=== PATIENT | male | born 1935 | race Caucasian/White ===

== ENCOUNTER 2017-07-26 15:33 | Inpatient (IN) | payer OTHER ==
[~2017-07-26] VITALS: Ht 165.1 cm; Wt 61.7 kg
--- NOTE | 2017-07-26 15:37 | NUR ---
JOHN FROM [facility] FOR NEAR SYNCOPAL EPISODE. PATIENT IS AAOX3 WITH EPISODE OF CONFUSION. SKIN IS WARM TO TOUCH AND NON DIAPHORETIC.PATIENT IS AFEBRILE. VSS.
[2017-07-26 15:58] LABS: BASOPHILS # (AUTO) 0.2 /CMM (0.0-0.2); BASOPHILS % (AUTO) 1.4 % (0.0-2.0); EOSINOPHILS % (AUTO) 0.5 % (0.0-6.0); HEMATOCRIT 35 % (39-51); HEMOGLOBIN 12.2 g/dL (13.5-17.5); LYMPHOCYTES # (AUTO) 1.1 /CMM (0.8-4.8); LYMPHOCYTES % (AUTO) 9.4 % (20.0-44.0); MEAN CORPUSCULAR HGB CONC 35 g/dl (31.0-36.0); MEAN CORPUSCULAR VOLUME 89 fL (80-96); MONOCYTES # (AUTO) 1.2 /CMM (0.1-1.30); MONOCYTES % (AUTO) 10.3 % (2.0-12.0); NEUTROPHILS # (AUTO) 8.8 /CMM (1.8-8.9); NEUTROPHILS % (AUTO) 78.4 % (43.0-81.0); PLATELET COUNT (AUTO) 252 /CMM (150-450); RDW COEFFICIENT OF VARIATION 13.8 (11.5-15.0); WHITE BLOOD COUNT (AUTO) 11.4 K/uL (4.3-11.0)
[2017-07-26] MEDS ORDERED: NITROGLYCERIN PACKET 1 GM PACKET TD ONE (16:00)
[2017-07-26] MEDS ORDERED: ASPIRIN 325 MG TABLET PO ONE (16:00)
[2017-07-26 16:09] LABS: CALCIUM, SERUM 9.3 mg/dL (8.5-10.1); CARBON DIOXIDE 26 mmol/L (21-32); CHLORIDE 101 mmol/L (98-107); CREATININE 2.4 mg/dL (0.6-1.3); GLUCOSE 211 mg/dL (74-106); POTASSIUM 3.1 mmol/L (3.5-5.1); SODIUM SERUM 136 mmol/L (136-145); UREA NITROGEN, BLOOD 56 mg/dL (7-18)
[2017-07-26] MEDS ORDERED: ASPIRIN 325 MG TABLET ONE (16:10)
[2017-07-26] MEDS ORDERED: NITROGLYCERIN PACKET 1 GM PACKET ONE (16:10)
[2017-07-26 16:13] LABS: INR 0.91 (0.85-1.15)
[2017-07-26 16:14] LABS: ALANINE AMINOTRANSFERASE 15 U/L (12-78); ALBUMIN 3.3 g/dL (3.4-5.0); ALKALINE PHOSPHATASE 97 U/L (46-116); ASPARTATE AMINOTRANSFERASE 24 U/L (15-37); BILIRUBIN,DIRECT 0.1 mg/dL (0.0-0.2); BILIRUBIN,TOTAL 0.3 mg/dL (0.2-1.0); TOTAL PROTEIN, SERUM 6.6 g/dL (6.4-8.2)
[2017-07-26 16:16] LABS: TROPONIN I 0.028 ng/mL (0.00-0.056)
--- NOTE | 2017-07-26 16:50 | NUR ---
CALLED DR MOSS AND IS ON PHONE WITH HIM.
[2017-07-26 17:16] LABS: APPEARANCE,URINE CLEAR (CLEAR); BILIRUBIN,URINE NEGATIVE (NEGATIVE); BLOOD, URINE NEGATIVE Ery/uL (NEGATIVE); COLOR,URINE YELLOW (YELLOW); KETONES,URINE TRACE (NEGATIVE); LEUKOCYTE ESTERASE ,URINE NEGATIVE (NEGATIVE); NITRITE, URINE NEGATIVE (NEGATIVE); PH,URINE 5.5 (5.0-8.0); PROTEIN,URINE TRACE mg/dl (NEGATIVE); UGLUCOSE 3+ mg/dL (NEGATIVE); UROBILINOGEN,URINE 0.2 EU/dL (0.2)
[2017-07-26] MEDS ORDERED: PANT40TA4 PO (17:18)
[2017-07-26] MEDS ORDERED: REPA2TAB9 PO (17:18)
[2017-07-26] MEDS ORDERED: SAXA5TAB PO (17:18)
[2017-07-26] MEDS ORDERED: CLOP75TA15 PO (17:18)
[2017-07-26] MEDS ORDERED: HYDR25TA4 PO (17:18)
[2017-07-26] MEDS ORDERED: AMLO10TA6 PO (17:18)
[2017-07-26 17:22] LABS: BACTERIA,URINE Few /HPF (None Seen); RBC,URINE 0-2 /HPF (0-2); SQUAMOUS EPITHELIAL CELL,UR Moderate /HPF (None Seen); URINE AMORPHOUS URATE Few /HPF (None Seen); WBC,URINE 0-2 /HPF (0-3)
--- NOTE | 2017-07-26 18:50 | NUR ---
REPORT GIVEN TO WENDY PARK. VSS
[2017-07-26 20:00] VITALS: BP 107/53
--- NOTE | 2017-07-26 20:00 | NUR ---
DESIGN PRINTING MACHINE SET UP OPERATOR ADMITTING NOTES: ADMITTED AN 81 YO MALE PATIENT WHO WAS BROUGHT TO THE ER DUE TO CHEST PAIN AND AMS. PATIENT WAS BROUGHT TO TELE FLOOR VIA GURAUTUMN, AOX4, ON ROOM AIR, BREATHING EVEN AND UNLABORED. PATIENT NOTED TO BE HARD OF HEARING, WEARS A HEARING AID OVER HIS LEFT EAR, AND HE ALSO HAS POOR EYESIGHT, DOES NOT HAVE EYEGLASSES WITH HIM. HOWEVER, PT STILL ABLE TO GIVE GOOD HISTORY. BREATH SOUNDS CLEAR TO AUSCULTATION. PATIENT APPEARS CALM AND IN NO DISTRESS, DENIES CHEST PAIN AT THIS TIME, BUT STATED AND IS AWARE THAT HE WAS BROUGHT TO THE HOSPITAL DUE TO CHEST PAIN. PIV OVER LAC G 20 INTACT AND PATENT TO FLUSH. ADMITTING CARE DONE. SKIN CHECK DONE, NOTED R ABOVE KNEE AMPUTATION, PER PATIENT, HE HAD AMPUTATION DUE TO DIABETES IN JULY OF 2009. MULTIPLE SCABS OVER HIS HEAD AND R FOREARM, PER PATIENT, HE HAS SKIN CA, AND HE JUST HAD SURGERY OVER THE AREA WHERE THE SCAB IS. ORIETED TO UNIT. PROVIDED FOR COMFORT AND SAFETY. BED IN LOWEST AND LOCKED POSITION, SIDERAILS UP X 3, CALL LIGHT WITHIN REACH.
--- NOTE | 2017-07-26 20:30 | NUR ---
RN NOTES: PATIENT ON TELE MONITORING: SINUS RHYTHM 69, WITH ST DEPRESSION. WILL INFORM DR MOSS.
--- NOTE | 2017-07-26 21:00 | NUR ---
RN NOTES: PAGED DR MOSS FOR ADMITTING ORDERS. AWAITING CALL BACK
--- NOTE | 2017-07-26 22:00 | NUR ---
RN NOTES: DR MOSS CALLED BACK, RECEIVED ADMITTING ORDERS. PER MD, CONTINUE ALL HOME MEDS. INFORMED DR MOSS THAT PATIENT SHOWS ST DEPRESSION IN TELE MONITOR, BUT VS STABLE, AND PATIENT CURRENTLY DENIES CHEST PAIN. ORDERED FOR CONSULT WITH DR HOLLINGSWORTH AND 2 D ECHO IN AM, WELL TROPONIN Q4 X 2. ALL ORDERS NOTED AND CARRIED OUT.
[2017-07-26] MEDS ORDERED: POTASSIUM CHLORIDE 20 MEQ TAB.PRT.SR PO ONE (22:30)
[2017-07-26] MEDS ORDERED: *INSULIN REGULAR(HUMULIN R)HUM 100 UNIT/ML VIAL SQ PRN (22:30)
[2017-07-26] MEDS ORDERED: DEXTROSE 50%-WATER 50 ML DISP.SYRIN IV PRN (22:30)
[2017-07-26] MEDS ORDERED: ACETAMINOPHEN 325 MG TABLET PO PRN (22:30)
[2017-07-26] MEDS ORDERED: ZOLPIDEM TARTRATE 5 MG TABLET PO PRN (22:30)
[2017-07-26] MEDS: BLOOD SUGAR DIAGNOSTIC 1 EACH STRIP VI SCH (23:08)
[2017-07-26] MEDS: ATORVASTATIN 40 MG TABLET PO SCH (23:08)
--- NOTE | 2017-07-26 23:14 | NUR ---
RN NOTES: BLOOD SUGAR CHECKED AT 319 MG/DL, ADMINISTERED 8 UNITS REGULAR INSULIN AND GAVE SNACK BEFORE PUTTING PATIENT ON NPO.
--- NOTE | 2017-07-26 23:30 | NUR ---
RN NOTES: PATIENT VERBALIZED THAT HE DOES NOT WANT CPR NOT INTUBATION DONE IN THE EVENT OF SUDDEN CARDIAC OR RESPIRATORY ARREST. HOWEVER, HE STATES THAT HE DOES NOT HAVE AN ADVANCED DIRECTIVE, AND STATES THAT HE DOES NOT UNDERSTAND WHAT IT IS. ORDERED FOR AIRPLANE PILOT SUPERVISOR CONSULT.
[2017-07-26] MEDS ORDERED: INSULIN REGULAR, HUMAN 100 UNIT/ML 3 ML VIAL ONE (23:43)
[2017-07-26] MEDS ORDERED: IV PREMIX 0.45% NS + KCL 1,000 ML IV ONE (23:43)
[2017-07-27] VITALS (7 sets, daily range): BP systolic 98–130; BP diastolic 45–65
[2017-07-27 03:08] LABS: BASOPHILS % (AUTO) 0.3 % (0.0-2.0); EOSINOPHILS % (AUTO) 1.3 % (0.0-6.0); HEMATOCRIT 32 % (39-51); HEMOGLOBIN 10.9 g/dL (13.5-17.5); LYMPHOCYTES # (AUTO) 1.6 /CMM (0.8-4.8); LYMPHOCYTES % (AUTO) 16.6 % (20.0-44.0); MEAN CORPUSCULAR HGB CONC 34 g/dl (31.0-36.0); MEAN CORPUSCULAR VOLUME 91 fL (80-96); MONOCYTES # (AUTO) 0.9 /CMM (0.1-1.30); MONOCYTES % (AUTO) 8.9 % (2.0-12.0); NEUTROPHILS # (AUTO) 7.3 /CMM (1.8-8.9); NEUTROPHILS % (AUTO) 72.9 % (43.0-81.0); PLATELET COUNT (AUTO) 206 /CMM (150-450); RDW COEFFICIENT OF VARIATION 14.9 (11.5-15.0); RED BLOOD CELL COUNT(AUTO) 3.49 MIL/uL (4.5-6.0); WHITE BLOOD COUNT (AUTO) 9.9 K/uL (4.3-11.0)
[2017-07-27] MEDS ORDERED: Z GUARD REMEDY 2 OZ OINT TP PRN (03:30)
[2017-07-27 03:43] LABS: CALCIUM, SERUM 8.7 mg/dL (8.5-10.1); CARBON DIOXIDE 25 mmol/L (21-32); CHLORIDE 102 mmol/L (98-107); CREATININE 2.3 mg/dL (0.6-1.3); GLUCOSE 286 mg/dL (74-106); POTASSIUM 3.5 mmol/L (3.5-5.1); SODIUM SERUM 136 mmol/L (136-145); UREA NITROGEN, BLOOD 59 mg/dL (7-18)
[2017-07-27 03:49] LABS: CHOLESTEROL 140 mg/dL (<200); HDL CHOLESTEROL 44 mg/dL (40-60); LDL 88 mg/dL (0-99); TRIGLYCERIDES 56 mg/dL (30-150)
--- NOTE | 2017-07-27 04:40 | NUR ---
RN NOTES: PATIENT'S PIV OVER LAC NOTED TO BE LEAKING, IV CATHETER PARTIALLY OUT. D'CHERELLE IV AND REINSERTED NEW IV LINE OVER RFA G 20, WITH GOOD BLOOD RETURN.
[2017-07-27] MEDS: BLOOD SUGAR DIAGNOSTIC 1 EACH STRIP VI SCH ×4 (06:40→17:49)
[2017-07-27] MEDS: INSULIN REGULAR, HUMAN 100 UNIT/ML 3 ML VIAL SQ PRN ×2 (06:40→17:54)
--- NOTE | 2017-07-27 07:08 | NUR ---
SAND MILLER CLOSING NOTES: PATIENT IN BED, AOX4, ON O2 AT 2 LPM VIA NC, BREATHING EVEN AND UNLABORED. APPEARS CALM AND IN NO DISTRESS. DENIES CHEST PAIN AT THIS TIME. AM BLOOD SUGAR CHECKED AT 245 MG/DL, NO INSULIN GIVEN AT THIS TIME PATIENT IS ON NPO. PIV OVER RFA G 20 INTACT AND INFUSING WELL WITH 1/2 NS + 20 MEQS KCL RUNNING AT 75 ML/HR. ON TELE MONITORING: SINUS RHYTHM RATE OF 60S WITH ST DEPRESSION. DUE MEDS GIVEN. PROVIDED FOR COMFORT AND SAFETY. BED IN LOWEST AND LOCKED POSITION, SIDERAILS UP X 3, CALL LIGHT WITHIN REACH. WILL ENDORSE TO AM RN FOR MARKELL.
--- NOTE | 2017-07-27 08:00 | NUR ---
MS RN RECEIVED ON BED, AWAKE,ALERT,ORIENTED X3,NOT IN ANY FORM OF DISTRESS, RESPIRATIONS EVEN AND UNLABORED,NO SOB NOTED, LUNGS ARE DIMINISHED,ABDOMEN SOFT,POSITIVE BOWEL SOUNDS, DENIES PAIN AT THIS TIME, WILL MONITOR PATIENT'S CONDITION.
--- NOTE | 2017-07-27 08:30 | NUR ---
MS RN NPO AT THIS TIME, WILL BE SEEN BY DR. EDEL SHAH FOR MGT.
--- NOTE | 2017-07-27 09:00 | NUR ---
MS RN WAS SEEN BY DR. EDEL Rojas/ ORDERS MADE AND CARRIED OUT.
[2017-07-27 09:28] LABS: PHOSPHORUS 2.9 mg/dL (2.5-4.9)
[2017-07-27 09:45] LABS: THYROID STIMULATING HORMONE 12.893 uIU/mL (0.358-3.74)
[2017-07-27] MEDS: ASPIRIN 325 MG TABLET PO SCH (11:02)
[2017-07-27] MEDS: CARVEDILOL 3.125 MG TABLET PO SCH ×2 (11:03→21:00)
[2017-07-27] MEDS: NICOTINE PATCH (14MG) 14 MG PATCH.TD24 TD SCH (11:03)
--- NOTE | 2017-07-27 11:30 | NUR ---
MS RN ECHO REFUSED BY PT, WILL NOTIFY .
--- NOTE | 2017-07-27 12:00 | NUR ---
MS RN BLOOD SUGAR CHECK REFUSED.
--- NOTE | 2017-07-27 17:35 | NUR ---
MS NGUYEN BS -294 - 9 UNITS OF REGULAR INSULIN GIVEN SQ.
--- NOTE | 2017-07-27 18:11 | NUR ---
MS RN ON BED, NO DISTRESS NOTED.
--- NOTE | 2017-07-27 19:10 | NUR ---
RN OPENING NOTES PT AWAKE AND ALERT. RESTING IN BED. FAMILY AT BEDSIDE. NO COMPLAINTS OF PAIN DISTRESS OR SOB AT THIS TIME. PT STATES "HE FEELS SO MUCH BETTER". FAMILY IS VERY HAPPY. PT HAS A RIGHT FOREARM #20 IV RUNNING 1/2 NS 20 MEQ KCL @75ML/HR. PT TOLERATING WELL. PT HAS A NONSTRESS TEST TOMORROW. CONSENT SIGNED AND IN CHART. SAFETY PRECAUTIONS IN PLACE. BED IN LOWEST LOCKED POSITION, X2 SIDERAILS UP, AND CALL LIGHT WITHIN REACH. WILL CONTINUE TO MONITOR.
[2017-07-27] MEDS: ATORVASTATIN 40 MG TABLET PO SCH (21:51)
[2017-07-27] MEDS ORDERED: INSULIN GLARGINE, 100 UNIT/ML CARTRIDGE SQ SCH (22:00)
[2017-07-27] MEDS ORDERED: LATA2.5D7 EACHEYE (22:12)
--- NOTE | 2017-07-27 23:54 | NUR ---
RN NOTES ACCUCHECK DOWN. IT DEPARTMENT NOTIFIED, UNABLE TO RESOLVE AT THIS TIME. STAT RANDOM GLUCOSE ORDERED. WILL CONTINUE TO MONITOR. PT NPO AFTER MIDNIGHT WILL NOT ADMINISTER LANTUS OR REGULAR INSULIN COVERAGE.
[2017-07-28] VITALS: BP 116/65
[2017-07-28 04:00] VITALS: BP 113/55
[2017-07-28 06:30] LABS: BASOPHILS % (AUTO) 0.4 % (0.0-2.0); EOSINOPHILS % (AUTO) 2.6 % (0.0-6.0); HEMATOCRIT 36 % (39-51); HEMOGLOBIN 12.3 g/dL (13.5-17.5); LYMPHOCYTES # (AUTO) 1.9 /CMM (0.8-4.8); LYMPHOCYTES % (AUTO) 18.7 % (20.0-44.0); MEAN CORPUSCULAR HGB CONC 34 g/dl (31.0-36.0); MEAN CORPUSCULAR VOLUME 91 fL (80-96); MONOCYTES # (AUTO) 0.7 /CMM (0.1-1.30); NEUTROPHILS # (AUTO) 7.1 /CMM (1.8-8.9); NEUTROPHILS % (AUTO) 71.3 % (43.0-81.0); PLATELET COUNT (AUTO) 225 /CMM (150-450); RDW COEFFICIENT OF VARIATION 14.8 (11.5-15.0); RED BLOOD CELL COUNT(AUTO) 3.97 MIL/uL (4.5-6.0)
[2017-07-28 06:44] LABS: ALANINE AMINOTRANSFERASE 18 U/L (12-78); ALKALINE PHOSPHATASE 93 U/L (46-116); ASPARTATE AMINOTRANSFERASE 22 U/L (15-37); BILIRUBIN,TOTAL 0.4 mg/dL (0.2-1.0); CALCIUM, SERUM 8.7 mg/dL (8.5-10.1); CARBON DIOXIDE 24 mmol/L (21-32); CHLORIDE 100 mmol/L (98-107); CREATININE 1.7 mg/dL (0.6-1.3); GLUCOSE 198 mg/dL (74-106); MAGNESIUM 1.7 mg/dL (1.8-2.4); PHOSPHORUS 2.3 mg/dL (2.5-4.9); POTASSIUM 4.6 mmol/L (3.5-5.1); SODIUM SERUM 133 mmol/L (136-145); TOTAL PROTEIN, SERUM 6.2 g/dL (6.4-8.2); UREA NITROGEN, BLOOD 43 mg/dL (7-18)
[2017-07-28 06:51] LABS: TROPONIN I < 0.017 ng/mL (0.00-0.056)
--- NOTE | 2017-07-28 07:24 | NUR ---
RN CLOSING NOTES PT RESTING IN BED. NO COMPLAINTS OF PAIN DISTRESS OR SOB OVER NIGHT. PT HAS A RIGHT FOREARM #20 IV RUNNING 1/2 NS 20 MEQ KCL @100ML/HR. PT TOLERATING WELL. PT HAS A NONSTRESS TEST TODAY. CONSENT SIGNED AND IN CHART. SAFETY PRECAUTIONS IN PLACE. BED IN LOWEST LOCKED POSITION, X2 SIDERAILS UP, AND CALL LIGHT WITHIN REACH. WILL ENDORSE TO DAY SHIFT NURSE FOR CONTINUITY OF CARE.
--- NOTE | 2017-07-28 07:32 | NUR ---
AVIATION TECHNICIAN OPENING NOTE PATIENT IS ALERT AND ORIENTED x4. NO PAIN AT THIS TIME. NO SOB OR DISTRESS NOTED. CALL LIGHT WITHIN REACH. SAFETY MEASURES IMPLEMENTED. ON 2L/MIN OF OXYGEN VIA NASAL CANNULA TOLERATING WELL. ABLE TO COMMUNICATE NEEDS. RIGHT FOREARM IV INTACT AND PATENT NO REDNESS OR SWELLING NOTED WITH IV 1/2 NS +KCL 20 MEQ RUNNING AT 100 ML/HR. NPO AT THIS TIME FOR STRESS TEST THIS MORNING. LABS PENDING. TELE MONITOR- 70S. WILL CONTINUE TO MONITOR THROUGHOUT SHIFT.
[2017-07-28] MEDS ORDERED: IV NS 0.9% 1,000 ML IV PRN (07:37)
[2017-07-28 08:00] VITALS: BP 119/51
[2017-07-28] MEDS ORDERED: REGADENOSON 0.4 MG/5 ML DISP.SYRIN IVP ONE (08:00)
[2017-07-28] MEDS ORDERED: ERGOCALCIFEROL (VITAMIN D 2) 50,000 UNIT CAPSULE PO SCH (08:00)
[2017-07-28] MEDS: Magnesium 1GM/D5W 100ML PREMIX 100 ML IV SCH ×2 (08:08→09:41)
[2017-07-28] MEDS: BLOOD SUGAR DIAGNOSTIC 1 EACH STRIP VI SCH ×2 (08:08→11:35)
--- NOTE | 2017-07-28 08:10 | NUR ---
BREWERY CELLAR WORKER NOTE IV 1/2 NS +KCL DISCONTINUED. IV NS AT 200 ML/HR STARTED
--- NOTE | 2017-07-28 08:20 | NUR ---
VISUAL JOURNALIST NOTE IV POTASSIUM DISCONTINUED. IV NS STARTED AND MAGNESIUM REPLACEMENT BAG #1 STARTED AT THIS TIME. WILL CONTINUE TO MONITOR AND REPLACE ELECTROLYTES NEEDED THROUGHOUT SHIFT
--- NOTE | 2017-07-28 08:30 | NUR ---
BANQUET SUPERVISOR NOTE PATIENT HEADED DOWN TO STRESS TEST. PATIENT STABLE, WILL RESUME CARE WHEN PATIENT RETURNS
[2017-07-28] MEDS ORDERED: LEVO50TA PO (08:32)
[2017-07-28] MEDS ORDERED: CARV3.122 PO (08:32)
[2017-07-28] MEDS ORDERED: Insulin Glargine,Hum SQ (08:32)
[2017-07-28] MEDS ORDERED: LINA5TAB PO (08:32)
[2017-07-28] MEDS ORDERED: INSU100V28 SQ (08:32)
[2017-07-28] MEDS ORDERED: ATOR40TA PO (08:32)
[2017-07-28] MEDS ORDERED: LINAGLIPTIN 5 MG TABLET PO SCH (09:00)
[2017-07-28] MEDS ORDERED: LEVOTHYROXINE SODIUM 50 MCG TABLET PO SCH (09:00)
--- NOTE | 2017-07-28 09:30 | NUR ---
OPERATOR COMMAND SUPPORT SYSTEMS NOTE PATIENT BACK FROM STRESS TEST, NOW ABLE TO EAT AND RESUME MEDS
[2017-07-28] MEDS: ASPIRIN 325 MG TABLET PO SCH (09:39)
[2017-07-28 09:40] VITALS: BP 119/51
[2017-07-28] MEDS: NICOTINE PATCH (14MG) 14 MG PATCH.TD24 TD SCH (09:40)
[2017-07-28] MEDS: CARVEDILOL 3.125 MG TABLET PO SCH (09:40)
--- NOTE | 2017-07-28 09:40 | NUR ---
CONCERT SINGER NOTE UNABLE TO ADMINISTER MEDICATION AT SCHEDULED TIME EARLIER DUE TO PATIENT BEING IN STRESS TEST AT THE TIME. NOW ABLE TO GIVE ALL MEDICATIONS. Addendum: 07/28/17 at 1454 by ASHLI SIMMONS RN MAGNESIUM RUNNING AT 0941 WHEN SCANNED
--- NOTE | 2017-07-28 10:33 | NUR ---
MS RN NOTE PATIENT HEADED DOWN TO PART TWO OF STRESS TEST
[2017-07-28] MEDS ORDERED: MAGNESIUM OXIDE 400 MG TABLET PO ONE (11:00)
[2017-07-28] MEDS ORDERED: CLOPIDOGREL BISULFATE 75 MG TABLET PO SCH (11:12)
[2017-07-28] MEDS: INSULIN REGULAR, HUMAN 100 UNIT/ML 3 ML VIAL SQ PRN (11:58)
--- NOTE | 2017-07-28 16:40 | NUR ---
MS PRINTS AND DRAWINGS CURATOR NOTE PATIENT DISCHARGED TO HOME WITH HOME HEALTH IN STABLE CONDITION. ALERT AND ORIENTED x4. NO PAIN AT THIS TIME. NO SOB OR DISTRESS NOTED. ALL DUE MEDICATIONS GIVEN ORDERED. ALL NURSING CARE NEEDS ATTENDED TO NEEDED. SKIN ISSUES DOCUMENTED IN CHART AND ATTENDED TO. ALL BELONGINGS ACCOUNTED FOR AT DISCHARGE AND WITH DAUGHTER/FAMILY. 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 PRESCRIPTION GIVEN TO DAUGHTER AT DISCHARGE. ALL DISCHARGE INSTRUCTIONS GIVEN TO PATIENT AND DAUGHTER, BOTH ABLE TO RETURN INSTRUCTIONS BACK VERBALLY. IV REMOVED, SKIN INTACT. LEFT VIA PRIVATE CAR WITH DAUGHTER/ FAMILY
[2017-07-28] MEDS ORDERED: INSULIN GLARGINE, 100 UNIT/ML CARTRIDGE SQ SCH (22:00)
== END 2017-07-28 16:30 | disposition home health service (06) | DRG 682 ==
LOC: ER 15:34 → TELE 18:56 → MED 07-28 09:05
PROVIDERS: ADMIT Internal Medicine; ATTEND Internal Medicine
DX: N17.9 Acute kidney failure, unspecified (principal); G93.41 Metabolic encephalopathy; E11.22 Type 2 diabetes mellitus with diabetic chronic kidney disease; E11.65 Type 2 diabetes mellitus with hyperglycemia; E86.0 Dehydration; I12.9 Hypertensive chronic kidney disease with stage 1 through stage 4 chronic kidney disease, or unspecified chronic kidney disease; I25.10 Atherosclerotic heart disease of native coronary artery without angina pectoris; E78.5 Hyperlipidemia, unspecified; K21.9 Gastro-esophageal reflux disease without esophagitis; N18.9 Chronic kidney disease, unspecified; F22 Delusional disorders; E03.9 Hypothyroidism, unspecified; Z95.1 Presence of aortocoronary bypass graft; F17.210 Nicotine dependence, cigarettes, uncomplicated; I25.2 Old myocardial infarction; Z89.611 Acquired absence of right leg above knee; D63.8 Anemia in other chronic diseases classified elsewhere
CPT/HCPCS: 36415; 70450-TC; 71045-TC; 80048-TC; 80053-TC; 80061-TC; 80076-TC; 81000-TC; 82306; 82728-TC; 82945-TC; 82962-TC; 83540-TC; 83735-TC; 84100-TC; 84439-TC; 84443-TC; 84484-TC; 85025-TC; 85730-TC; 87081-TC; 93307-TC; A4606; A9502; J1815; J2785; J3475; J3480; J3490; J7030; Z7610